=== PATIENT | female | born 1980 | race Caucasian/White ===

== ENCOUNTER 2017-06-11 09:57 | Emergency (ER) | payer MEDICAID ==
[2017-06-11 13:06] LABS: microscopic required? YES; urine erythrocyte 2+ (NEGATIVE)
[2017-06-11 13:40] VITALS: BP 130/89
== END 2017-06-11 14:15 | disposition home or self-care (01) ==
LOC: ED 09:57
PROVIDERS: Emergency Medicine Emergency Medical Services
DX: N20.2 Calculus of kidney with calculus of ureter (principal); Z88.0 Allergy status to penicillin
CPT/HCPCS: J1885